=== PATIENT | male | born 1980 | race Caucasian/White ===

== ENCOUNTER 2019-11-24 15:26 | Emergency (ER) | payer OTHER ==
[~2019-11-24] VITALS: Ht 177.8 cm; Wt 72.6 kg
[~2019-11-24 15:26] MED LIST: BENTYL 20 MG TA20 M1 PO; CARAFATE 1 GM TA1 G1 PO; DESYREL50 MG PO; DOXYCYCLINE 10100 MG PO; LEVAQUIN 500 M500 MG PO; NORCO 5-325 TA1 EACH PO; PHENERGAN 25 MG25 M1 PO
[2019-11-24 16:34] LABS: ABSOLUTE EOSINOPHILS 0.1 thou/uL (0.0-0.7); ABSOLUTE LYMPHOCYTES 1.7 thou/uL (0.8-5.3); ABSOLUTE MONOCYTES 0.8 thou/uL (0.0-1.2); ABSOLUTE NEUTROPHILS 4.8 thou/uL (1.6-8.1); BASOPHILS 0.3 %; EOSINOPHILS 1.2 %; HEMATOCRIT 40.2 % (42.0-52.0); HEMOGLOBIN 14.2 gm/dL (14.0-18.0); LYMPHOCYTES 22.6 %; MCH 31.4 pg (26.0-34.0); MCHC 35.2 g/dL (28.0-37.0); MCV 89.2 fL (80.0-100.0); MONOCYTES 10.3 %; MPV 7.2 fl. (7.2-11.1); NUCLEATED RBCS 0 /100WBC; PLATELET COUNT* 281 thou/uL (150-400); POLYS 65.6 %; RBC 4.51 mil/uL (4.50-6.00); RDW-CV 13.4 % (10.5-14.5); WBC 7.3 thou/uL (4.0-11.0)
[2019-11-24 16:44] LABS: CALCIUM 8.6 mg/dL (8.5-10.1); CREATININE 1.1 mg/dL (0.6-1.3); POTASSIUM 3.4 mmol/L (3.5-5.1)
[2019-11-24 16:49] LABS: ALBUMIN 3.9 g/dL (3.4-5.0); TOTAL BILIRUBIN 0.2 mg/dL (<0.1-1.0); TOTAL PROTEIN 7.2 g/dL (6.4-8.2)
[2019-11-24 17:54] VITALS: BP 98/60
--- NOTE | 2019-11-25 11:21 | EKG ---
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: : 1980 Requested By: Stan Freeman Order Number: [id number] MD: Matthias Longoria Measurements Intervals [place] Rate: 78 P: 52 MS: 153 QRS: 45 QRSD: 103 T: 49 QT: 384 QTc: 438 Interpretive Statements Sinus rhythm Compared to ECG 01/11/2015 10:26:06 Sinus tachycardia no longer present Electronically Signed On 11-25-2019 11:21:11 CDT by Matthias Longoria [email or web address] <ELECTRONICALLY SIGNED> By: Matthias Longoria MD, [facility] 11/25/19 1121 1628 1628 Matthias Longoria MD, [facility] /EPI
== END 2019-11-24 17:55 | disposition home or self-care (01) ==
LOC: M.ERS 15:26
PROVIDERS: Emergency Medicine Emergency Medical Services
DX: T67.5XXA Heat exhaustion, unspecified, initial encounter (principal); R42 Dizziness and giddiness; Z88.0 Allergy status to penicillin; Z88.2 Allergy status to sulfonamides; X58.XXXA Exposure to other specified factors, initial encounter; Y93.89 Activity, other specified; Y92.89 Other specified places as the place of occurrence of the external cause; Y99.0 Civilian activity done for income or pay